=== PATIENT | male | born 1950 | race Caucasian/White ===

== ENCOUNTER 2021-08-13 10:36 | Emergency (ER) | payer MEDICARE, OTHER, SELFPAY ==
[2021-08-13 10:40] VITALS: BP 198/87; PULSE 88; RESP 16; TEMP 36.7; O2SAT 100
--- NOTE | 2021-08-13 10:50 | DI.CT.S_ITS ---
PROCEDURE: CT ABDOMEN PELVIS WO/W CON INDICATIONS: painless hematuria, with clots, urology history TECHNIQUE: After the administration of oral contrast, 5 mm thick sections acquired from the diaphragms to the iliac crests. After the administration of intravenous contrast, 5 mm thick sections acquired from the diaphragms to the symphysis. 5 mm thick coronal and sagittal reformats were acquired. For radiation dose reduction, the following was used: automated exposure control, adjustment of mA and/or kV according to patient size. COMPARISON: None. FINDINGS: Image quality: Excellent. Lung bases: Lung bases are clear. Heart size is normal. The coronary arteries have atherosclerotic calcifications. Solid organs: Liver: The liver has no mass or intrahepatic biliary ductal dilatation. The portal vein and hepatic veins are patent. Biliary: The gallbladder has no gallstones, pericholecystic fluid, gallbladder wall thickening, or surrounding inflammatory change. Pancreas: The pancreas has no mass or ductal dilatation. There is no surrounding inflammation. Spleen: Normal size. There are no masses. Adrenals: No hypertrophy or nodules. Kidneys: No obstructive calculus or hydronephrosis. No solid mass. No cystic mass. Peritoneum and bowel: The distal esophagus and stomach are normal. The small bowel has a normal caliber and appearance. The terminal ileum is normal. The large bowel has diverticulosis with no evidence of diverticulitis. The appendix is not definitively visualized; however there are no secondary findings to suggest acute appendicitis. Increased stool is noted in right colon. No free fluid or air. Nodes and vessels: No retroperitoneal or mesenteric adenopathy by size criteria. Aorta and inferior vena cava are normal in size. Miscellaneous: No abdominal wall mass or hernia. PELVIS: Genitourinary: The bladder has no wall thickening or mass. No bladder calcifications. Miscellaneous: No inguinal hernias or adenopathy. Bones: No suspicious bony lesions. No vertebral body compression fracture. There is disc disease at L5-S1. IMPRESSION: 1. No nephroureteral calculi. 2. No filling defects on delayed phase images. Dictated by: Yordy Mcfarlane M.D. on 08/13/2021 at 12:08 Approved by: Yordy Mcfarlane M.D. on 08/13/2021 at 12:15
[2021-08-13 11:04] LABS: Appearance Urine UA CLOUDY; Bilirubin Urine UA 1+ (NEGATIVE); Color Urine UA RED; Glucose Urine UA 2+ g/dL (Negative); Ketones Urine UA TRACE (NEGATIVE); Leukocyte Esterase Urine UA TRACE (NEGATIVE); Nitrite Urine UA NEGATIVE (Negative); Occult Blood Urine UA 3+ (Negative); Protein Urine UA 2+ (Negative); Specific Gravity Urine UA 1.025 (1.000-1.035)
--- NOTE | 2021-08-13 11:09 | PC.NURSE ---
Pt states he does feel as if he empties his bladder. States blood in urine got better and is now worse. + small / med clots but do not obstruct flow. Feels generally tired and his abdoman feels off with decreased po intake but states my has been away so I never eat much when she is gone.
[2021-08-13 11:12] LABS: Add Manual Diff / Slide Review NO; Basophils Absolute Auto 0 /uL (0-100); Basophils Percent Auto 0.8 % (0-2); Eosinophils Absolute Auto 100 /uL (0-450); Eosinophils Percent Auto 2.3 % (2-4); Hematocrit 44.4 % (41-53); Hemoglobin 14.9 g/dL (13.5-17.5); Lymphocytes Absolute Auto 1400 /uL (1100-4500); Lymphocytes Percent Auto 25.3 % (25-40); Mean Corpuscular HGB Conc 33.7 % (30-36); Mean Corpuscular Hemoglobin 28.8 PG (26-34); Mean Corpuscular Volume 85.7 fL (80-100); Monocytes Absolute Auto 300 /uL (0-900); Monocytes Percent Auto 6.3 % (3-14); Neutrophils Absolute Auto 3500 /uL (1500-7000); Neutrophils Percent Auto 65.3 % (50-75); Platelet Count 185 X10^3/uL (150-400); Red Blood Cell Count 5.18 X10^6/uL (4.5-5.9); Red Cell Distribution Width 13.8 % (11.6-14.8); White Blood Cell Count 5.4 X10^3/uL (4.5-11.0)
[2021-08-13 11:16] LABS: Amorphous Sediment Urine 2+; Bacteria Urine None Seen; Culture Indicated Urine Specimen Cultured; RBC Urine 10-30/HPF (0-5/HPF); Squamous Epithelial Cell Urine None Seen (0-5/HPF); WBC Urine 5-10/HPF (0-5/HPF)
[2021-08-13 11:18] LABS: Ictotest Urine Positive (Negative)
[2021-08-13 11:20] LABS: Prothrombin Time 11.1 SECONDS (10.1-12.7)
--- NOTE | 2021-08-13 11:22 | ED.MALEGU ---
HPI - Male Genitourinary General Chief complaint: Urogenital-Male Stated complaint: WIC, uro gen,quite a bit of blood and clots urine Time Seen by Provider: 08/13/21 10:40 Source: patient Mode of arrival: Ambulatory Limitations: no limitations History of Present Illness HPI Narrative: 71-year-old male former smoker with history of prostate cancer presents with a chief complaint of a day or 2 of painless hematuria and occasional passage of clots. He denies any dysuria, frequency or urgency. He denies fever, chills nor nausea or vomiting. He denies any back pain. He states that he has some generalized queasiness and discomfort in his abdomen but is otherwise largely at baseline. He has a urologist in [place] but none locally. He denies any difficulty emptying his bladder. He denies any history of the same. He denies any vomiting or diarrhea, he denies any black tarry stools Related Data Home Medications Medication Instructions Recorded Confirmed amlodipine 10 mg tablet 20 mg PO QDAY #0 06/01/13 aspirin 81 mg tablet 81 mg PO DAILY 08/13/21 08/13/21 Allergies Allergy/AdvReac Type Severity Reaction Status Date / Time Penicillins Allergy Unknown Verified 08/13/21 10:51 Review of Systems Review of Systems Narrative: GENERAL: Denies chills, fatigue, malaise, fever, sweats. HEENT: Denies sinus pain, ear pain, sore throat, difficulty swallowing, dizziness. RESPIRATORY: Denies dyspnea, cough, wheezing, hemoptysis, sputum. CARDIOVASCULAR: Denies chest pain, palpitations, orthopnea, edema, GASTROINTESTINAL: Denies nausea, vomiting, abdominal pain, diarrhea, constipation, melena. : See HPI MUSCULOSKELETAL: denies weakness, joint pain, or bony pain SKIN: Denies rash, skin lesions, or other NEUROLOGIC: Denies weakness, headache, numbness, change in speech, confusion, seizures, incoordination. PSYCHIATRIC: No concerning psychosocial issues. 12 point review of systems is negative except for those stated above Patient History Social History Smoking Status: Former smoker Smoking Status: Former smoker alcohol intake frequency: 0-2 drinks per day Substance Use Type: does not use Exam Narrative Exam Narrative: GENERAL: [71] year old patient appears stated age. Well-developed patient, in mild distress. HEAD: Atraumatic. Normocephalic. EYES: Pupils equal round and reactive. Extraocular motions intact. No scleral icterus. No injection or drainage. ENT: Nose without bleeding, purulent drainage. Throat without erythema, tonsillar hypertrophy or exudate. Airway patent. NECK: Trachea midline. Non tender CARDIOVASCULAR: Regular rate and rhythm without murmurs, gallops, or rubs. RESPIRATORY: Clear to auscultation. Breath sounds equal bilaterally. No wheezes, rales, or rhonchi. GASTROINTESTINAL: Abdomen soft, non-tender, nondistended. Bowel sounds present in all 4 quadrants EXTREMITIES: No edema or joint tenderness. BACK: Nontender without deformity or crepitance. No flank tenderness. NEURO: AOx3. SKIN: No rash or erythema of visible areas Initial Vital Signs Initial Vital Signs: Vital Signs Temperature 98.1 F 08/13/21 10:40 Pulse Rate 88 08/13/21 10:40 Respiratory Rate 16 08/13/21 10:40 Blood Pressure 198/87 H 08/13/21 10:40 Pulse Oximetry 100 08/13/21 10:40 Course Orders Ordered: Discontinued Medications Sodium Chloride (Normal Saline 0.9%) 500 mls @ 1,000 mls/hr IV BOLUS ONE Stop: 08/13/21 11:19 Last Infusion: 08/13/21 12:25 Dose: 0 mls/hr Documented by: Admin: 08/13/21 11:31 Dose: 1,000 mls/hr Documented by: JOBY Vital Signs Vital signs: Vital Signs - 8 hr 08/13/21 10:40 08/13/21 12:34 Temperature 98.1 F Pulse Rate 88 61 Respiratory Rate 16 Blood Pressure 198/87 H 158/86 H Pulse Oximetry 100 98 MDM - Male Genitourinary Lab Data Result diagrams: 08/13/21 11:00 08/13/21 11:00 Labs: Lab Results 08/13/21 08/13/21 08/13/21 Range/Units 10:45 11:00 11:00 WBC 5.4 (4.5-11.0) X10^3/uL RBC 5.18 (4.5-5.9) X10^6/uL Hgb 14.9 (13.5-17.5) g/dL Hct 44.4 (41-53) % MCV 85.7 (80-100) fL MCH 28.8 (26-34) PG MCHC 33.7 (30-36) % RDW 13.8 (11.6-14.8) % Plt Count 185 (150-400) X10^3/uL Neut % (Auto) 65.3 (50-75) % Lymph % (Auto) 25.3 (25-40) % [place] % (Auto) 6.3 (3-14) % Eos % (Auto) 2.3 (2-4) % Baso % (Auto) 0.8 (0-2) % Neut # (Auto) 3500 (5485-4538) /uL Lymph # (Auto) 1400 (6879-0744) /uL [place] # (Auto) 300 (0-900) /uL Eos # (Auto) 100 (0-450) /uL Baso # (Auto) 0 (0-100) /uL PT 11.1 (10.1-12.7) SECONDS INR 1.0 (0.9-1.3) Sodium (137-145) mmol/L Potassium (3.4-5.1) mmol/L Chloride (98-107) mmol/L Carbon Dioxide (22-32) mmol/L BUN (9-20) mg/dL Creatinine (0.66-1.25) mg/dL Estimated GFR (>60) mL/min BUN/Creatinine Ratio (6-22) Glucose (80-110) mg/dL Calcium (8.4-10.2) mg/dL Total Bilirubin (0.2-1.3) mg/dL AST (17-59) IU/L ALT (<50) IU/L Alkaline Phosphatase (38-126) U/L Total Protein (6.3-8.2) g/dL Albumin (3.5-5.0) g/dL Globulin (1.7-4.1) g/dL Albumin/Globulin Ratio (1.0-2.8) Urine Color Red Urine Appearance Cloudy Urine pH 5.0 (4.5-8.0) Ur Specific [place] 1.025 (1.000-1.035) Urine Protein 2+ H (Negative) Urine Glucose (UA) 2+ H (Negative) g/dL Urine Ketones Trace H (NEGATIVE) Urine Occult Blood 3+ H (Negative) Urine Nitrate Negative (Negative) Urine Bilirubin 1+ H (NEGATIVE) Ur Bilirubin Confirm Positive H (Negative) Urine Urobilinogen 1.0 (0.2) E.U./dL Ur Leukocyte Esterase Trace H (NEGATIVE) Urine RBC 10-30/hpf H (0-5/HPF) Urine WBC 5-10/hpf H (0-5/HPF) Ur Squamous Epith Cells None seen (0-5/HPF) Amorphous Sediment 2+ Urine Bacteria None seen (None) Ur Culture Indicated? Specimen cultured 08/13/21 Range/Units 11:00 WBC (4.5-11.0) X10^3/uL RBC (4.5-5.9) X10^6/uL Hgb (13.5-17.5) g/dL Hct (41-53) % MCV (80-100) fL MCH (26-34) PG MCHC (30-36) % RDW (11.6-14.8) % Plt Count (150-400) X10^3/uL Neut % (Auto) (50-75) % Lymph % (Auto) (25-40) % [place] % (Auto) (3-14) % Eos % (Auto) (2-4) % Baso % (Auto) (0-2) % Neut # (Auto) (1235-4781) /uL Lymph # (Auto) (3635-9711) /uL [place] # (Auto) (0-900) /uL Eos # (Auto) (0-450) /uL Baso # (Auto) (0-100) /uL PT (10.1-12.7) SECONDS INR (0.9-1.3) Sodium 140 (137-145) mmol/L Potassium 3.8 (3.4-5.1) mmol/L Chloride 105 (98-107) mmol/L Carbon Dioxide 29 (22-32) mmol/L BUN 15 (9-20) mg/dL Creatinine 0.53 L (0.66-1.25) mg/dL Estimated GFR > 60.0 (>60) mL/min BUN/Creatinine Ratio 28.3 H (6-22) Glucose 202 H (80-110) mg/dL Calcium 9.4 (8.4-10.2) mg/dL Total Bilirubin 0.6 (0.2-1.3) mg/dL AST 33 (17-59) IU/L ALT 34 (<50) IU/L Alkaline Phosphatase 71 (38-126) U/L Total Protein 7.4 (6.3-8.2) g/dL Albumin 4.4 (3.5-5.0) g/dL Globulin 3.0 (1.7-4.1) g/dL Albumin/Globulin Ratio 1.5 (1.0-2.8) Urine Color Urine Appearance Urine pH (4.5-8.0) Ur Specific [place] (1.000-1.035) Urine Protein (Negative) Urine Glucose (UA) (Negative) g/dL Urine Ketones (NEGATIVE) Urine Occult Blood (Negative) Urine Nitrate (Negative) Urine Bilirubin (NEGATIVE) Ur Bilirubin Confirm (Negative) Urine Urobilinogen (0.2) E.U./dL Ur Leukocyte Esterase (NEGATIVE) Urine RBC (0-5/HPF) Urine WBC (0-5/HPF) Ur Squamous Epith Cells (0-5/HPF) Amorphous Sediment Urine Bacteria (None) Ur Culture Indicated? Imaging Data CT scan - abdomen/pelvis: Radiologist's Impression: Launch?[place] [id number] CT Scan Report Signed Patient: Juancarlos Galarza MR#: [id number] : 1950 Acct:[id number] Age/Sex: 71 / M Date of Service: 08/13/21 Loc: ED Accession Number: [id number] ?? Procedure: CT abdomen pelvis wo/w con Ordering Provider: Regis Matt D.O. PROCEDURE:? CT ABDOMEN PELVIS WO/W CON ? INDICATIONS:? painless hematuria, with clots, urology history ? TECHNIQUE:? After the administration of oral contrast, 5 mm thick sections acquired from the diaphragms to the iliac crests.? After the administration of intravenous contrast, 5 mm thick sections acquired from the diaphragms to the symphysis.? 5 mm thick coronal and sagittal reformats were acquired.? For radiation dose reduction, the following was used:? automated exposure control, adjustment of mA and/or kV according to patient size.? ? COMPARISON:? None. ? FINDINGS: Image quality:? Excellent.? ? Lung bases:? Lung bases are clear.? Heart size is normal.? The coronary arteries have atherosclerotic calcifications. ? Solid organs:? Liver: The liver has no mass or intrahepatic biliary ductal dilatation. The portal vein and hepatic veins are patent. Biliary: The gallbladder has no gallstones, pericholecystic fluid, gallbladder wall thickening, or surrounding inflammatory change. Pancreas: The pancreas has no mass or ductal dilatation. There is no surrounding inflammation. Spleen: Normal size. There are no masses. Adrenals: No hypertrophy or nodules. Kidneys: No obstructive calculus or hydronephrosis.? No solid mass. No cystic mass. ? Peritoneum and bowel:? The distal esophagus and stomach are normal.? The small bowel has a normal caliber and appearance. The terminal ileum is normal. The large bowel has diverticulosis with no evidence of diverticulitis.? The appendix is not definitively visualized; however there are no secondary findings to suggest acute appendicitis.? Increased stool is noted in right colon.? No free fluid or air.? ? Nodes and vessels:? No retroperitoneal or mesenteric adenopathy by size criteria.? Aorta and inferior vena cava are normal in size.? ? Miscellaneous:? No abdominal wall mass or hernia. ? PELVIS:? Genitourinary:? The bladder has no wall thickening or mass. No bladder calcifications. ? Miscellaneous:? No inguinal hernias or adenopathy.? ? Bones:? No suspicious bony lesions.? No vertebral body compression fracture.? There is disc disease at L5-S1. ? IMPRESSION:? 1. No nephroureteral calculi. 2. No filling defects on delayed phase images. ? ? Dictated by: Yordy Mcfarlane M.D. on 08/13/2021 at 12:08 ? ? Approved by: Yordy Mcfarlane M.D. on 08/13/2021 at 12:15 ? MDM Narrative Medical decision making narrative: Well appearing, painless, minimal hematuria. Stable vitals and blood work. CT reassuring. No indications for hospitalization or immediate intervention. Return precautions discussed. Questions answered to his apparent satisfaction. Discharge Plan Departure Patient Disposition: Home Clinical Impression: Hematuria Qualifiers: Hematuria type: gross Qualified Code(s): R31.0 - Gross hematuria Instructions: DI for Hematuria Activity Restrictions/Additional Instructions: *You have been diagnosed with [hematuria without evidence of kidney stone, or abnormal findings on the CT] *What to do: *Please continue to take your regular medications as directed. [ ] New medication prescriptions sent to your pharmacy: [ ] [ ] New medication written as a paper prescription [ x] No new medications given *Please follow up with your urologist back in [place]. As we discussed, please call the office and let them know you were seen in the emergency department and we would like to be seen in follow-up. They will be able to obtain the records. We have printed your CT scan on a disc for you to take with you. If you are unable to follow-up at a reasonable time, I have also provided our on-call urologist as a backup plan *If you do not have a primary care provider please contact the [facility] Resource line at [phone]. They will ask some questions about your medical history and help get you set up with a doctor in the community. *Return to Emergency Department if you should have any new, worsening or concerning symptoms, such as [fever greater than 101 F, shaking chills, worsening pain, persistent vomiting or other bothersome symptoms] Prescriptions: No Action amlodipine 10 MG tablet 20 mg PO QDAY Qty: 0 RF: 0 aspirin 81 mg Tablet 81 mg PO DAILY RF: 0 Referrals: Gloria Jones MD [Physician] - Miscellaneous,MD Dejan [Primary Care Provider] -
[2021-08-13 11:24] LABS: Alanine Aminotransferase 34 IU/L (<50); Albumin 4.4 g/dL (3.5-5.0); Albumin Globulin Ratio 1.5 (1.0-2.8); Alkaline Phosphatase 71 U/L (38-126); Aspartate Aminotransferase 33 IU/L (17-59); BUN Creatinine Ratio 28.3 (6-22); Bilirubin Total 0.6 mg/dL (0.2-1.3); Blood Urea Nitrogen 15 mg/dL (9-20); Calcium 9.4 mg/dL (8.4-10.2); Carbon Dioxide 29 mmol/L (22-32); Chloride 105 mmol/L (98-107); Estimated Glomerular Filt Rate > 60.0 mL/min (>60); Glucose 202 mg/dL (80-110); HEMOLYSIS < 15 (0-50); Potassium 3.8 mmol/L (3.4-5.1); Sodium 140 mmol/L (137-145); Total Protein 7.4 g/dL (6.3-8.2)
[2021-08-13] MEDS: SODIUM CHLORIDE 0.9% 500 ML 1000 ML IV (11:31)
[2021-08-13 12:34] VITALS: BP 158/86; PULSE 61; O2SAT 98
== END 2021-08-13 12:58 | disposition home or self-care (01) ==
PROVIDERS: Emergency Provider Emergency Medicine
DX: R31.0 Gross hematuria (principal); R10.9 Unspecified abdominal pain
CPT/HCPCS: 36415; 51798; 74178; 80053; 81001; 85025; 85610; 87086; 96360; 99284; Q9967

== ENCOUNTER → 2022-07-24 13:00 | Outpatient (CLI) | payer MEDICARE, OTHER, SELFPAY | PROVIDERS: Visit Provider Registered Nurse | DX: R30.0 Dysuria (principal) | CPT/HCPCS: 87086 ==